=== PATIENT | male | born 1965 | race Caucasian/White ===

== ENCOUNTER 2020-04-24 11:59 | Emergency (ER) | payer SELFPAY ==
[~2020-04-24] VITALS: Ht 172.7 cm; Wt 86.0 kg
[2020-04-24 12:16] VITALS: BP 172/90
[2020-04-24] MEDS ORDERED: HYDROcodone/APAP 5/325MG 1 TAB TABLET PO ONE (12:45)
[2020-04-24] MEDS ORDERED: DIPH,PERTUSS(ACELL),TET VAC/PF 0.5 ML SYRINGE. VAX IM ONE (12:45)
[2020-04-24] MEDS ORDERED: LIDOCAINE 1% Multi-Dose 20 ML VIAL. INJ ONE (12:45)
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
[2020-04-24] MEDS ORDERED: LIDOCAINE/EPI/TETRACAINE TOPICAL GEL 3 ML. TP ONE (13:30)
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
[2020-04-24] MEDS ORDERED: ORPHENADRINE CITRATE 60 MG/2 ML VIAL. IM ONE (13:45)
[2020-04-24] MEDS ORDERED: HYDR-3164 PO (13:47)
[2020-04-24] MEDS ORDERED: IBUP-1007 PO (13:47)
[2020-04-24] MEDS ORDERED: ORPH100T PO (13:47)
[2020-04-24] MEDS ORDERED: CEPH-264 PO (14:19)
== END 2020-04-24 14:29 | disposition home or self-care (01) ==
LOC: ER 11:59
DX: S51.811A Laceration without foreign body of right forearm, initial encounter (principal); S01.01XA Laceration without foreign body of scalp, initial encounter; M25.511 Pain in right shoulder; F17.200 Nicotine dependence, unspecified, uncomplicated; W18.09XA Striking against other object with subsequent fall, initial encounter; Y93.39 Activity, other involving climbing, rappelling and jumping off; Y92.89 Other specified places as the place of occurrence of the external cause; Y99.8 Other external cause status
CPT/HCPCS: 12002; 70450; 72125; 73030; 73060; 73080; 73090; 90471; 90715; 96372; 99285; J2360; J3490

== ENCOUNTER 2020-05-08 13:35 | Emergency (ER) | payer SELFPAY ==
[~2020-05-08] VITALS: Ht 172.7 cm; Wt 82.7 kg
[~2020-05-08 13:35] MED LIST: CEPH-264 PO; HYDR-3164 PO; IBUP-1007 PO; ORPH100T PO
[2020-05-08 14:10] VITALS: BP 148/98
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
== END 2020-05-08 14:21 | disposition home or self-care (01) ==
LOC: ER 13:35
DX: S01.01XD Laceration without foreign body of scalp, subsequent encounter (principal); S01.81XD Laceration without foreign body of other part of head, subsequent encounter; X58.XXXD Exposure to other specified factors, subsequent encounter
CPT/HCPCS: 99282